=== PATIENT | male | born 1995 | race African-American/Black ===

== ENCOUNTER 2017-05-03 21:44 | Emergency (ER) | payer SELFPAY ==
[~2017-05-03] VITALS: Ht 185.4 cm; Wt 77.0 kg
[2017-05-03 21:50] VITALS: BP 119/56; PULSE 82; RESP 16; TEMP 99; O2SAT 96
--- NOTE | 2017-05-03 22:24 | PD ---
Physical Exam Time Seen by Provider: 22:23 Narrative 21yo M c/o Laceration to L 4th finger from glass today. Up to date on tetanus. Patient seen in triage. VS reviewed. Awaiting bed placement. Data Data Last Documented VS Vital Signs Date Time Temp Pulse Resp B/P Pulse Ox O2 Delivery O2 Flow Rate FiO2 05/03/17 21:50 99.0 82 16 119/56 96 Room Air MDM Supervised Visit with ANIKA: No Scripts No Active Prescriptions or Reported Meds Tracey Nicholson May 03, 2017 22:24
[2017-05-04] MEDS ORDERED: BUPIVACAINE HCL PF 0.5% 10 ML VIAL INFIL ONE (00:30)
[2017-05-04] MEDS ORDERED: TETANUS/DIPHTHERIA TOXOID ADULT 0.5 ML VIAL IM ONE (00:30)
--- NOTE | 2017-05-04 00:54 | PD ---
HPI Chief Complaint: Laceration/Skin Injury Time Seen by Provider: 00:00 Travel History International Travel<30 days: No Contact w/Intl Traveler<30days: No Traveled to known affect area: No History of Present Illness HPI Patient is a 21-year-old male presenting to him in for evaluation of a laceration to his left fourth finger. Patient states cut on a piece of glass prior to arrival. Patient states he is up-to-date on his tetanus vaccination. Pain is a 3 out of 10, he denies any other complaints at this time. [facility] Past Medical History Medical History: Denies Significant Hx Diminished Hearing: No Immunizations Current: Yes Tetanus Vaccination: Unknown Influenza Vaccination: No Past Surgical History Abdominal Surgery: Yes (UMBILICAL HERNIA) Social History Alcohol Use: No Tobacco Use: No Substance Use: No Allergies-Medications (Allergen,Severity, Reaction): Coded Allergies: No Known Allergies (Verified , 05/03/17) Reported Meds & Prescriptions Reported Meds & Active Scripts Active No Active Prescriptions or Reported Medications Review of Systems Except as stated in HPI: all other systems reviewed are Neg Skin: Positive Other (laceration) Physical Exam Narrative GENERAL: Well-nourished, well-developed patient. SKIN: Focused skin assessment warm/dry. 1 cm superficial laceration to the palmar aspect of the left fourth finger pad distal to the DIP joint. HEAD: Normocephalic. EYES: No scleral icterus. No injection or drainage. NECK: Supple, trachea midline. No JVD or lymphadenopathy. CARDIOVASCULAR: Regular rate and rhythm without murmurs, gallops, or rubs. RESPIRATORY: Breath sounds equal bilaterally. No accessory muscle use. GASTROINTESTINAL: Abdomen soft, non-tender, nondistended. MUSCULOSKELETAL: No cyanosis, or edema. BACK: Nontender without obvious deformity. No CVA tenderness. Data Data Last Documented VS Vital Signs Date Time Temp Pulse Resp B/P Pulse Ox O2 Delivery O2 Flow Rate FiO2 05/03/17 22:25 16 05/03/17 21:50 99.0 82 119/56 96 Room Air Orders Tetanus/Diphtheria Tox Adult (Tetanus/Di (05/04/17 00:30) Bupivacaine Pf 0.5% Inj (Marcaine Pf 0.5 (05/04/17 00:30) MDM Medical Decision Making Medical Screen Exam Complete: Yes Emergency Medical Condition: Yes Interpretation(s) Vital Signs Date Time Temp Pulse Resp B/P Pulse Ox O2 Delivery O2 Flow Rate FiO2 05/03/17 22:25 16 05/03/17 21:50 99.0 82 16 119/56 96 Room Air Differential Diagnosis Laceration versus abrasion versus contusion versus other Narrative Course Patient is a 21-year-old male presented to emergency department evaluation of a laceration to his left fourth finger. Please see procedure report for laceration repair. Patient is up-to-date with his tetanus vaccine, he is neurovascularly intact., He is encouraged to follow-up with his primary doctor. He was educated on wound care. Patient verbalized understanding of instructions. Patient is stable for discharge. Procedures Procedure Narrative LACERATION LOCATION: Left fourth finger on the palmar aspect distal to the DIP joint LENGTH: 1 cm NUMBER OF STITCHES/THEODORE: 3 stitches REPAIR: The area of the laceration was prepped with Betadine and sterilely draped. The laceration was infiltrated with 1% lidocaine. The wound was copiously irrigated and explored without evidence of foreign body, tendon injury or neurovascular injury. The wound was closed using 5-0 Vicryl. This was a 1 layer repair. A sterile dressing was applied. The patient was advised to keep the dressing clean and dry. Patient tolerated the procedure well. Diagnosis Primary Impression: Laceration of finger Qualified Code: S61.215A - Laceration of left ring finger without foreign body without damage to nail, initial encounter Referrals: Primary Care Physician Patient Instructions: Care For Your Absorbable Stitches (ED), Finger Laceration (ED), General Instructions Additional Instructions: Follow-up with her primary doctor Keep stitches clean and dry Return to emergency department for any new or worsening symptoms Stitches will dissolve in approximately 1 week. Med/Other Pt SpecificInfo: No Change to Meds Scripts No Active Prescriptions or Reported Meds Disposition: 01 DISCHARGE HOME Condition: Stable Tara Quinn May 04, 2017 00:54
== END 2017-05-04 01:25 | disposition home or self-care (01) ==
LOC: NEPD 21:44
DX: S61.215A Laceration without foreign body of left ring finger without damage to nail, initial encounter (principal); Z23 Encounter for immunization; W25.XXXA Contact with sharp glass, initial encounter
CPT/HCPCS: 12001; 90714; 96372

== ENCOUNTER 2017-06-01 10:15 | Emergency (ER) | payer SELFPAY ==
[~2017-06-01] VITALS: Ht 182.9 cm; Wt 84.0 kg
[2017-06-01 10:17] VITALS: BP 134/73; PULSE 85; RESP 16; TEMP 98.2; O2SAT 98
--- NOTE | 2017-06-01 11:14 | PD ---
HPI Chief Complaint: Respiratory Symptoms Time Seen by Provider: 11:11 Travel History International Travel<30 days: No Contact w/Intl Traveler<30days: No Traveled to known affect area: No History of Present Illness HPI Patient is a 21-year-old male presenting to emergency Department for evaluation of shortness of breath. Patient states it's been going on for 2 weeks. He denies any fever, chills, vomiting, chest pain, abdominal pain. He states he felt nauseated at times but has not vomited, denies any diarrhea. He has been tolerating food and fluids. Patient reports a history of asthma and is out of his albuterol inhaler. [facility] Past Medical History Asthma: Yes Diminished Hearing: No Respiratory: Yes (ASTHMA) Immunizations Current: Yes Past Surgical History Abdominal Surgery: Yes (UMBILICAL HERNIA) Social History Alcohol Use: No Tobacco Use: Yes Substance Use: No Allergies-Medications (Allergen,Severity, Reaction): Coded Allergies: No Known Allergies (Verified , 06/01/17) Reported Meds & Prescriptions Reported Meds & Active Scripts Active Ventolin Hfa 18 GM Inh (Albuterol Sulfate) 90 Mcg/Act Aer 2 Puff INH Q4-6H PRN Review of Systems Except as stated in HPI: all other systems reviewed are Neg Respiratory: Positive: Shortness of Breath Gastrointestinal: Positive: Nausea Physical Exam Narrative GENERAL: Ill-appearing, well-developed, well-nourished, alert male. Resting comfortably in no acute distress. SKIN: Warm and dry. HEAD: Atraumatic. Normocephalic. EYES: Pupils equal and round. No scleral icterus. No injection or drainage. ENT: No nasal bleeding or discharge. Mucous membranes pink and moist. NECK: Trachea midline. No JVD. CARDIOVASCULAR: Regular rate and rhythm. RESPIRATORY: No accessory muscle use. Scattered expiratory wheezes. Breath sounds equal bilaterally. GASTROINTESTINAL: Abdomen soft, non-tender, nondistended. Hepatic and splenic margins not palpable. MUSCULOSKELETAL: Extremities without clubbing, cyanosis, or edema. No obvious deformities. NEUROLOGICAL: Awake and alert. No obvious cranial nerve deficits. Motor grossly within normal limits. Five out of 5 muscle strength in the arms and legs. Normal speech. PSYCHIATRIC: Appropriate mood and affect; insight and judgment normal. Data Data Last Documented VS Vital Signs Date Time Temp Pulse Resp B/P Pulse Ox O2 Delivery O2 Flow Rate FiO2 7/25/17 11:01 58 20 99 Room Air 06/01/17 10:17 98.2 134/73 Orders Chest, Single Ap (06/01/17 11:09) Albuterol-Ipratropium Neb (Duoneb Neb) (06/01/17 11:15) MDM Medical Decision Making Medical Screen Exam Complete: Yes Emergency Medical Condition: Yes Interpretation(s) Vital Signs Date Time Temp Pulse Resp B/P Pulse Ox O2 Delivery O2 Flow Rate FiO2 06/01/17 11:01 58 20 99 Room Air 06/01/17 10:17 98.2 85 16 134/73 98 Differential Diagnosis Asthma exacerbation versus bronchitis versus pneumonia versus other Narrative Course Patient is a 21-year-old male presenting for evaluation of shortness of breath, patient appears well, his vital signs are stable, he is well oxygenated on room air. Will check portable chest x-ray, DuoNeb's 3 ordered. Patient was reassessed, he reports improvement after DuoNeb treatments. Chest x-ray shows no acute disease Patient was given refill of albuterol inhaler. He was advised to follow-up with his primary doctor at the [facility]. He was encouraged to return to emergency department immediately for any new or worsening symptoms. Patient verbalized understanding of these instructions. Patient is stable for discharge. Diagnosis Primary Impression: Asthma exacerbation Referrals: [facility] Primary Care Physician Patient Instructions: Asthma (ED), General Instructions Additional Instructions: Follow-up with your primary doctor or at the [facility] Use medications as needed and as directed Return to emergency department for any new or worsening symptoms Med/Other Pt SpecificInfo: Prescription(s) given Scripts Albuterol 18 GM Inh (Ventolin Hfa 18 GM Inh)90 Mcg/Act Aer2 Puff INH Q4-6H PRN ( SHORTNESS OF BREATH) #1 INHALER Ref 1 Prov:Tara Quinn 06/01/17 Disposition: 01 DISCHARGE HOME Condition: Stable Tara Quinn Jun 01, 2017 11:13
[2017-06-01] MEDS: RESP: ALBUTEROL 2.5 MG/IPRATROPIUM 0.5 MG NEB (SCH) INH ×2 (11:26→11:27)
[2017-06-01] MEDS ORDERED: VENTAER INH (12:00)
--- NOTE | 2017-06-01 12:17 | RADRPT ---
EXAM DATE/TIME: 06/01/2017 11:34 [facility] COMPARISON: CHEST SINGLE AP, March 10, 2016, 11:21. INDICATIONS : Wheezing, short of breath. MEDICAL HISTORY : asthma SURGICAL HISTORY : None. ENCOUNTER: Initial ACUITY: 1 day PAIN SCORE: 0/10 LOCATION: Bilateral chest FINDINGS: A single view of the chest demonstrates the lungs to be symmetrically aerated without evidence of mas s, infiltrate or effusion. The cardiomediastinal contours are unremarkable. Osseous structures are intact. CONCLUSION: No acute cardiopulmonary process. Colt Gavin MD on June 01, 2017 at 12:15 Board Certified Radiologist. This report was verified electronically.
== END 2017-06-01 13:05 | disposition home or self-care (01) ==
LOC: NEPD 10:15
DX: J45.901 Unspecified asthma with (acute) exacerbation (principal); F17.290 Nicotine dependence, other tobacco product, uncomplicated
CPT/HCPCS: 71010; 99283

== ENCOUNTER 2017-10-03 22:13 | Emergency (ER) | payer SELFPAY ==
[~2017-10-03] VITALS: Ht 188 cm; Wt 85.0 kg
[~2017-10-03 22:13] MED LIST: VENTAER INH
[2017-10-03 22:17] VITALS: BP 146/73; PULSE 65; RESP 16; TEMP 98.6; O2SAT 99
[2017-10-04] MEDS ORDERED: FLUORESCEIN SOD 1 MG STRIP EACH EYE ONE (00:15)
[2017-10-04] MEDS ORDERED: TETRACAINE 0.5% OPTH SOLN 15 ML BTL EACH EYE ONE (00:15)
[2017-10-04] MEDS ORDERED: ERYTOIN10 LEFT EYE (00:59)
--- NOTE | 2017-10-04 01:00 | PD ---
HPI Chief Complaint: Eye Problems/Injury Time Seen by Provider: 00:09 Travel History International Travel<30 days: No Contact w/Intl Traveler<30days: No Traveled to known affect area: No History of Present Illness HPI 22 M c/o left eye redness and pain for about two days. no foreign body sensation. onset gradual. no change in vision. no fever or similar prior episodes. no close contacts with similar symptoms. denies worsening of symptoms in the morning. PFSH Past Medical History Asthma: Yes Diminished Hearing: No Respiratory: Yes (ASTHMA) Immunizations Current: Yes Tetanus Vaccination: < 5 Years Influenza Vaccination: No Past Surgical History Abdominal Surgery: Yes (UMBILICAL HERNIA) Social History Alcohol Use: No Tobacco Use: No Substance Use: No Allergies-Medications (Allergen,Severity, Reaction): Coded Allergies: No Known Allergies (Verified Allergy, Unknown, 10/04/17) Reported Meds & Prescriptions Reported Meds & Active Scripts Active Erythromycin Opth Oint 5 Mg/Gm Oint 1 Applic LEFT EYE QID 5 Days Ventolin Hfa 18 GM Inh (Albuterol Sulfate) 90 Mcg/Act Aer 2 Puff INH Q4-6H PRN Review of Systems General / Constitutional: No: Fever Eyes: No: Visual changes HENT: No: Headaches Cardiovascular: No: Chest Pain or Discomfort Physical Exam Narrative GENERAL: 22 yo male wnwd SKIN: Warm and dry. HEAD: Normocephalic. EYES: scleral erythema without changes about the eyelid or periorbital soft tissue. perrla, stain with cobalt lamp shows no fb or corneal abrasion. NECK: Supple, trachea midline. No JVD or lymphadenopathy. GASTROINTESTINAL: Abdomen soft, non-tender, nondistended. MUSCULOSKELETAL: No cyanosis, or edema. BACK: Nontender without obvious deformity. No CVA tenderness. Data Data Last Documented VS Vital Signs Date Time Temp Pulse Resp B/P (MAP) Pulse Ox O2 Delivery O2 Flow Rate FiO2 10/04/17 02:16 10/03/17 22:17 98.6 65 16 99 Room Air Vital Signs Date Time Temp Pulse Resp B/P (MAP) Pulse Ox O2 Delivery O2 Flow Rate FiO2 10/04/17 02:16 10/03/17 22:17 98.6 65 16 146/73 (97) 99 Room Air Orders Orders Tetracaine 0.5% Opth Soln (Pontocaine 0. (10/04/17 00:15) Fluorescein Strip ([id number] A.T.) (10/04/17 00:15) Ed Discharge Order (10/04/17 01:00) Erythromycin 0.5% Opth Oint (Ilotycin 0. (10/04/17 01:15) Acetamin-Hydrocod 325-5 Mg ([place] 5-325 (10/04/17 01:15) MDM Medical Decision Making Medical Screen Exam Complete: Yes Emergency Medical Condition: Yes Differential Diagnosis conjunctivitis, fb in eye, corneal abrasion Narrative Course flouroscein finch is normal; no corneal abrasion or fb in eye no trauma and vision is normal conjunctivitis is considered most likely in this scenario return precautions discussed Diagnosis Primary Impression: Conjunctivitis Qualified Codes: H10.32 - Unspecified acute conjunctivitis, left eye Med/Other Pt SpecificInfo: Prescription(s) given Scripts Erythromycin Opth Oint (Erythromycin Opth Oint) 5 Mg/Gm Oint 1 APPLIC LEFT EYE QID for Infection for 5 Days, #1 TUBE 0 Refills Prov: Manny Bales MD 10/04/17 Disposition: 01 DISCHARGE HOME Condition: Stable Manny Bales MD Oct 04, 2017 01:00
[2017-10-04] MEDS ORDERED: ACETAMINOPHEN/HYDROcodone 325 MG/5 MG TAB PO ONE (01:15)
[2017-10-04] MEDS ORDERED: ERYTHROMYCIN 0.5% OPTH OINT 3.5 GM TUBO LEFT EYE ONE (01:15)
== END 2017-10-04 02:17 | disposition home or self-care (01) ==
LOC: NEPD 22:13
DX: H10.32 Unspecified acute conjunctivitis, left eye (principal)
CPT/HCPCS: 99283